=== PATIENT | male | born 1965 | race Two or more races ===

== ENCOUNTER → 2019-04-24 12:39 | Outpatient (CLI) | payer OTHER ==
[~2019-04-24 12:39] MED LIST: DIOVAN HCT 160-1 TAB PO
== END | disposition home or self-care (01) ==
LOC: RAD 12:39
DX: M54.5 Low back pain (principal); M25.551 Pain in right hip; M25.552 Pain in left hip

== ENCOUNTER 2020-03-05 18:45 | Emergency (ER) | payer OTHER ==
[~2020-03-05] VITALS: Ht 175.3 cm; Wt 81.2 kg
[2020-03-05] MEDS ORDERED: LOSARTAN 20 MG (19:06)
== END 2020-03-05 21:36 | disposition home or self-care (01) ==
LOC: ER 18:45
DX: I15.8 Other secondary hypertension (principal); T46.5X4A Poisoning by other antihypertensive drugs, undetermined, initial encounter; Y92.89 Other specified places as the place of occurrence of the external cause

== ENCOUNTER 2020-07-05 14:09 | Outpatient (CLI) | payer OTHER ==
[~2020-07-05 14:09] MED LIST changes: +LOSARTAN 20 MG
== END 2020-07-05 14:16 ==
LOC: RAD 14:09
DX: M54.5 Low back pain (principal); M25.551 Pain in right hip; M25.552 Pain in left hip

== ENCOUNTER → 2020-08-10 | Emergency (ER) | payer OTHER | END | disposition left against medical advice (07) | LOC: ER 05:36 | DX: Z53.20 Procedure and treatment not carried out because of patient's decision for unspecified reasons (principal) ==

== ENCOUNTER 2020-12-11 15:21 | Outpatient (CLI) | payer OTHER | END 2020-12-11 15:42 | disposition home or self-care (01) | LOC: RAD 15:21 | PROVIDERS: ATTEND Orthopaedic Surgery | DX: M62.00 Separation of muscle (nontraumatic), unspecified site (principal) ==

== ENCOUNTER 2021-07-28 10:16 | Outpatient (CLI) | payer OTHER | END 2021-07-28 10:21 | disposition home or self-care (01) | LOC: RAD 10:16 | PROVIDERS: ATTEND Orthopaedic Surgery | DX: M48.062 Spinal stenosis, lumbar region with neurogenic claudication (principal) ==

== ENCOUNTER → 2021-11-13 08:28 | Outpatient (CLI) | payer OTHER | END | disposition home or self-care (01) | LOC: RAD 08:28 | PROVIDERS: ATTEND Orthopaedic Surgery | DX: M48.062 Spinal stenosis, lumbar region with neurogenic claudication (principal) ==

== ENCOUNTER → 2021-12-18 | Outpatient (CLI) | payer OTHER | END | disposition home or self-care (01) | LOC: RAD 07:33 | PROVIDERS: ATTEND Physical Medicine & Rehabilitation | DX: M16.11 Unilateral primary osteoarthritis, right hip (principal) ==

== ENCOUNTER 2023-06-30 20:12 | Emergency (ER) | payer OTHER ==
[~2023-06-30] VITALS: Ht 167.6 cm; Wt 77.1 kg
[2023-06-30] MEDS ORDERED: NORVASC5 MG PO (20:37)
[2023-06-30 21:28] LABS: PH,URINE 5.5 (5.0-8.0); URINE APPEARANCE Clear; URINE BILIRRUBIN Negative (NEGATIVE); URINE BLOOD Negative; URINE COLOR Dark Yellow; URINE GLUCOSE Negative (NEGATIVE); URINE LEUKOCYTE Trace; URINE NITRATE Positive; URINE PROTEIN Negative (NEGATIVE)
[2023-06-30 21:28] LABS: HEMATOCRIT 47.2 % (39.0-48.0); HEMOGLOBIN 15.9 g/dL (13-16.00); MEAN CELL VOLUME 90.2 fL (80.0-100.00); MEAN CORPUSCULAR HEMOGLOBIN 30.3 pg (27.00-32.0); MEAN CORPUSCULAR HGB CONC 33.6 g/dl (32.0-36.0); PLATELET COUNT 188 K/uL (150-450); RED BLOOD COUNT 5.23 M/uL (4.00-6.00); RED CELL DISTRIBUTION WIDTH 13.6 % (11.5-14.5)
[2023-06-30 21:34] LABS: URINE BACTERIA 2.5 uL (0.0-1933); URINE EPITHELIAL CELLS 0.2 uL (0.0-38.8); URINE WBC 0.4 uL (0.0-23.2)
[2023-06-30 21:44] LABS: CALCIUM 9.1 mg/dL (8.5-10.1); CREATININE SERUM 0.98 mg/dL (0.70-1.30); GFR 78.56; POTASSIUM 4.39 mEq/L (3.5-5.1)
== END 2023-06-30 22:11 | disposition home or self-care (01) ==
LOC: ER 20:14
PROVIDERS: General Practice
DX: R30.0 Dysuria (principal); I10 Essential (primary) hypertension; Z88.2 Allergy status to sulfonamides

== ENCOUNTER 2023-07-09 21:52 | Emergency (ER) | payer OTHER ==
[~2023-07-09] VITALS: Ht 152.4 cm; Wt 78.9 kg
[~2023-07-09 21:52] MED LIST changes: +NORVASC5 MG PO
[2023-07-10 02:34] LABS: URINE APPEARANCE Clear; URINE BILIRRUBIN Negative (NEGATIVE); URINE BLOOD Negative; URINE COLOR Yellow; URINE GLUCOSE Negative (NEGATIVE); URINE LEUKOCYTE Negative; URINE NITRATE Negative; URINE PROTEIN Negative (NEGATIVE); URINE UROBILINOGEN 0.2 E.U./dl
[2023-07-10 02:35] LABS: URINE BACTERIA 6.2 uL (0.0-1933); URINE RBC 2.8 uL (0.0-20.8)
[2023-07-10 02:44] LABS: URINE EPITHELIAL CELLS 0.6 uL (0.0-38.8); URINE WBC 1.3 uL (0.0-23.2)
[2023-07-10] MEDS ORDERED: PYRIDIUM DS200 MG PO ×2 (04:47→04:49)
[2023-07-10] MEDS ORDERED: CEPHALEXIN750 MG PO ×2 (04:47→04:49)
== END 2023-07-10 04:51 | disposition home or self-care (01) ==
LOC: ER 21:53
PROVIDERS: General Practice
DX: N39.0 Urinary tract infection, site not specified (principal); R30.0 Dysuria; I10 Essential (primary) hypertension; Z88.2 Allergy status to sulfonamides